=== PATIENT | female | born 1945 | race Caucasian/White ===

== ENCOUNTER → 2017-07-22 | Outpatient (CLI) | payer OTHER ==
[~2017-07-22] MED LIST: IOPAMIDOL (ISOVUE-300) 100 ML BTL ONE
== END ==
LOC: CIMAGING 11:01
PROVIDERS: ATTEND Surgery
DX: R10.32 Left lower quadrant pain (principal); K59.00 Constipation, unspecified; M51.36 Other intervertebral disc degeneration, lumbar region
CPT/HCPCS: 74177; Q9967; 82565-PO

== ENCOUNTER 2017-08-13 06:24 | Inpatient (IN) | payer OTHER ==
[2017-08-13] MEDS ORDERED: CLINDAMYCIN 900 MG/DEXTROSE 50 ML IV ONE (06:39)
[2017-08-13] MEDS ORDERED: LR 1,000 ML IV ONE (06:40)
[2017-08-13] MEDS ORDERED: LIDOCAINE 1% 300 MG/30 ML SDV ONE (07:56)
[2017-08-13] MEDS ORDERED: NA BICARBONATE 50 MEQ/50 ML VIAL ONE (07:56)
[2017-08-13] MEDS ORDERED: BUPIVACAINE 0.5% 30 ML SDV ONE (07:56)
--- NOTE | 2017-08-13 08:03 | PDANEPAE ---
ANE History of Present Illness 72 year old with IH ANE Past Medical History - Cardiovascular History Hx Hypertension: Yes Hx Arrhythmias: No Hx Chest Pain: No Hx Coronary Artery / Peripheral Vascular Disease: No Hx CHF / Valvular Disease: No Hx Palpitations: No - Pulmonary History Hx COPD: No Hx Asthma/Reactive Airway Disease: No Hx Recent Upper Respiratory Infection: No Hx Oxygen in Use at Home: No Hx Sleep Apnea: No Sleep Apnea Screening Result - Last Documented: Negative - Neurologic History Hx Cerebrovascular Accident: No Hx Seizures: No Hx Dementia: No - Endocrine History Hx Diabetes: No Endocrine History Comment: THYROID NODULE - Renal History Hx Renal Disorders: No - Liver History Hx Hepatic Disorders: No - Neurological & Psychiatric Hx Hx Neurological and Psychiatric Disorders: No - Cancer History Hx Cancer: No - Congenital Disorder History Hx Congenital Disorders: Yes Congenital History Comment: SKIN - GI History Hx Gastrointestinal Disorders: Yes Gastrointestinal History Comment: 4 MONTH HX OF GI DISCOMFORT,UNDER BETTER CONTROL WITH DIET MODIFICATIONS - Other Health History Other Health History: ALLERGIC RHINITIS - Chronic Pain History Chronic Pain: Yes (LOWER ABD) - Surgical History Prior Surgeries: HYSTERECTOMY. BLADDER REPAIR POST HYST. TONSILLECTOMY. TUBAL LIGATION. DERMOID CYST ANE Review of Systems Review of systems is: negative Review of Systems: - Exercise capacity METS (RN): 4 METS ANE Patient History - Allergies Allergies/Adverse Reactions: amoxicillin Allergy (Verified 08/10/17 10:27) Rash Sulfa (Sulfonamide Antibiotics) Allergy (Verified 08/10/17 10:27) Hives sulfamethoxazole [From Bactrim] Allergy (Verified 08/10/17 10:27) Hives Tetracyclines Allergy (Verified 08/13/17 07:04) trimethoprim [From Bactrim] Allergy (Verified 08/10/17 10:26) - Home Medications Home Medications: Amlodipine Besylate DAILY06 08/10/17 [Last Taken Unknown] Aspirin EC 81 mg (*) HS 08/10/17 [Last Taken Unknown] Herbals/Supplements -Info Only DAILY 08/10/17 [Last Taken Unknown] Lisinopril DAILY06 08/10/17 [Last Taken Unknown] - NPO status NPO Status: no food or drink >8 hours NPO Since - Liquids (Date): 08/12/17 NPO Since - Liquids (Time): 00:00 NPO Since - Solids (Date): 08/12/17 NPO Since - Solids (Time): 00:00 - Smoking Hx Smoking Status: Never smoked ANE Labs/Vital Signs - Vital Signs Blood Pressure: 126/69 Heart Rate: 92 Respiratory Rate: 14 O2 Sat (%): 98 Height: 152.4 cm Weight: 61.235 kg ANE Physical Exam - Airway Neck exam: FROM Mallampati Score: Class 1 Mouth exam: normal dental/mouth exam - Pulmonary Pulmonary: no respiratory distress - Cardiovascular Cardiovascular: regular rate and rhythym - ASA Status ASA Status: II ANE Anesthesia Plan Anesthesia Plan: GA w LMA
--- NOTE | 2017-08-13 08:13 | PDHPUP ---
History & Physical Update H&P update statement: This history and physical update is based on an assessment of the patient which was completed after admission or registration (within 24 hours), but prior to the surgery/procedure. H&P update: H&P reviewed & patient examined, no change in patient's condition since H&P completed
[2017-08-13] MEDS ORDERED: fentaNYL 250 MCG/5 ML INJ ONE (08:29)
[2017-08-13] MEDS ORDERED: PROPOFOL 200 MG/20 ML VIAL ONE (08:29)
--- NOTE | 2017-08-13 09:39 | POSTOPPROG ---
Post Op Note Date of Operation: 08/13/17 Surgeon: Bharat Moy Assessor: Monae Anesthesiologist: Loy Anesthesia: GET(General Endotracheal) Pre-op Diagnosis: LLQ pain Post-op Diagnosis: same Indication: same Procedure: open ventral hernia repair Findings: abdominal wall weakness, no true hernia Inf/Abcess present in the surg proc area at time of surgery?: No Depth: Deep Incisional (Fascial) EBL: Minimal
[2017-08-13] MEDS ORDERED: PROMETHAZINE HCL 25 MG/ML INJ IVP PRN (09:50)
[2017-08-13] MEDS ORDERED: ONDANSETRON 4 MG/2 ML VIAL IVP PRN (09:50)
[2017-08-13] MEDS ORDERED: NALOXONE HCL 0.4 MG/ML INJ IVP PRN (09:50)
--- NOTE | 2017-08-13 09:51 | POSTANESTH ---
Post Anesthetic Evaluation Cardiovascular Status: Normal, Stable Respiratory Status: Normal, Stable Level of Consciousness/Mental Status: Can Participate in Eval Pain Control: Adequate, Prn Tx Ordered Nausea/Vomiting Control: Adequate, Prn Tx Ordered Complications Possibly Related to Anesthesia: None Noted
[2017-08-13] MEDS ORDERED: fentaNYL 100 MCG/2 ML INJ ONE ×3 (10:01→10:53)
[2017-08-13] MEDS: fentaNYL 100 MCG/2 ML INJ IVP PRN ×6 (10:04→10:56)
[2017-08-13] MEDS: HYDROmorphONE/DILAUDID 2 MG/ML INJ IVP PRN ×5 (10:20→11:12)
[2017-08-13] MEDS ORDERED: HYDROmorphONE/DILAUDID 2 MG/ML INJ ONE (10:21)
[2017-08-13] MEDS ORDERED: HYDROCODONE/APAP 5/325 TAB PO PRN (10:32)
[2017-08-13] MEDS ORDERED: oxyCODONE IR 5 MG TAB PO PRN (10:32)
[2017-08-13] MEDS ORDERED: oxyCODONE IR 5 MG TAB ONE (11:11)
[2017-08-13] MEDS ORDERED: OXYCODONE/APAP 5/325 TAB PO PRN (14:06)
[2017-08-13] MEDS ORDERED: HYDROmorphONE/DILAUDID 2 MG/ML INJ IVP PRN (14:11)
--- NOTE | 2017-08-13 14:14 | CPEKG ---
Heart Rate: 90 RR Interval: 667 P-R Interval: 160 QRSD Interval: 90 QT Interval: 380 QTC Interval: 465 P Nathrop: 46 QRS Nathrop: 41 T Wave Nathrop: -17 EKG Severity - BORDERLINE ECG - EKG Impression: SINUS RHYTHM EKG Impression: BORDERLINE T ABNORMALITIES, DIFFUSE LEADS Electronically Signed By: Laurent Aparicio 16-Aug-2017 08:54:57
--- NOTE | 2017-08-13 14:33 | SOAPPROG ---
SOAP Progress Note Assessment/Plan: Assessment: 72 y/o F s/p open ventral hernia repair today Received call from RN in phase 2 recovery that pt was experiencing severe dizziness. Pt seen with Dr. Sales, anesthesiologist, who ordered a 500cc bolus of NS. S: Very dizzy. Moving eyes makes it worse. Denies nausea, vomiting, headaches , chest pain and heart palpitations. Reports incisional pain and has received iv dilaudid, as well as oral percocet. Took percocet with 6 crackers. Still having moderate pain, but does not want to take any more pain medication for fear that it will make dizziness worse. Has never had this issue before. Denies a history of vertigo. O: Alert, but unable to make eye contact Afebrile VSS HENT: pupils equal and round. normocephalic Cardiac: RRR Chest: no increased WOB, CTA bilaterally Abdomen: dressing with scant serosanguinous drainage, otherwise cdi. Appropriately tender to palpation. No guarding or rebound tenderness. Skin: warm and dry. Pale, which is her baseline. Plan: Discussed with Drs. Sales and Chinmay. Most likely due to medications from surgery. Will order stat ekg to r/o cardiac cause. Will order labs as well. Admit pt for observation, per pt's request. 08/13/17 14:20 Objective: Vital Signs Temp Pulse Resp BP Pulse Ox 36.5 C 91 21 H 126/61 H 99 08/13/17 11:34 08/13/17 11:34 08/13/17 11:35 08/13/17 13:31 08/13/17 13:31 08/12/17 08/13/17 08/14/17 05:59 05:59 05:59 Intake Total 300 Balance 300 ICD10 Worksheet Patient Problems: Problems Problem Status Onset Dizziness Acute - ICD10 Problem Qualifiers (1) Dizziness
[2017-08-13 16:05] LABS: PLATELET COUNT 216 10^3/uL (150-400)
[2017-08-13] MEDS ORDERED: ACETAMINOPHEN 650 MG/20.3 ML UDCUP PO PRN (17:04)
[2017-08-13] MEDS: KETOROLAC 15 MG/1 ML SDV IVP SCH ×2 (17:43→23:52)
--- NOTE | 2017-08-13 19:17 | GCON ---
[f rep st] CONSULTATION CONSULTING QUESTION: Evaluation for dizziness. HISTORY OF PRESENT ILLNESS: A 72-year-old female with a history of hypertension who presented today for elective ventral hernia repair. The patient reports taking her normal blood pressure medicines t his morning with a sip of water. Then, presenting to the operating room for surgical intervention. The patient denies any chest pain, shortness of breath, palpitations, vision changes, headache, numbn ess, tingling, weakness, or issues prior to presentation for surgery. The patient underwent general anesthesia and postoperatively, was experiencing a sensation she described as dizziness. She reports the sensation is a feeling like riding a wave up and down on a skateboard. Denies any changes in he r vision, denies the room spinning. Denies any associated nausea or vomiting. Denies palpitations, chest pain, numbness, tingling. Denies any previous episodes of this sensation of dizziness. Report s that it has been improving hourly since her postoperative evaluation. The patient tolerated normal oral intake for dinner. She reports this is some of the first solid non-BRAT food she has taken in over 2 months. Denies any changes in her bowel habits postoperatively. Has not stooled. Again, has no deficits in her vision, numbness, tingling, chest pain or shortness of breath. PAST MEDICAL HISTORY: 1. Hypertension. 2. Ventral hernia. 3. Status post a bladder repair after hysterectomy. SOCIAL HISTORY: Negative for tobacco. Very rare alcohol. No illicit drugs or marijuana. FAMILY HISTORY: Positive for strokes in several male relatives including a brother and an uncle. REVIEW OF SYSTEMS: A 10-point review of systems is negative with the exception of that reported in t he HPI. PHYSICAL EXAMINATION: VITAL SIGNS: Blood pressure 129/78, heart rate 78, respiratory rate 20, satur ating 98% on 2 L, 36.6. GENERAL: This is a healthy-appearing 72-year-old female, sitting up in bed. HEENT: Exam is notable for dry mucous membranes. Eye exam is negative for any icterus. CARDIAC: Patient is regular rate and rhythm. PULMONARY: She is clear to auscultation bilaterally. GASTROINT ESTINAL: Positive bowel sounds. Abdomen is soft and nontender to palpation in the upper quadrants, she is tender in the left lower. MUSCULOSKELETAL: Negative for any lower extremity edema. SKIN: N egative for any rashes. NEUROLOGIC: Cranial nerves 2-12 are grossly intact. Strength is intact katya aterally of the upper and lower extremities. Sensation is intact throughout. PSYCHIATRIC: She is p leasant and cooperative on interview and examination. DATA: EKG, which I personally reviewed and interpreted, shows sinus rhythm, normal axis, normal inte rvals, with nonspecific T-wave flattening across the precordium. LABORATORY: White count 5.7, hematocrit 37.5, platelets of 216. Creatinine 0.6, sodium 139, potassi um 4.2, glucose of 120. ASSESSMENT AND PLAN: This is a 72-year-old female presenting postoperatively with a sensation of lig htheadedness/dizziness. 1. Dizziness. Reviewing the patient's vital signs, it does appear that she had fluctuating episodes of hypotension postoperatively including nadirs in the systolics in the 90s. With my evaluation now , the patient has consistently had a blood pressure above 115 since noon, and does report that she mittal s not had significant episodes in several hours. I am suspicious that her symptoms may be related to intermittent hypotension. The patient is receiving intravenous fluids which will continue this even ing. We will hold her normal home dosing of antihypertensives overnight, tolerating her blood pressu re to rise to more normal levels. Those can be re-initiated in the morning if she has had complete c essation of her symptoms. I have low suspicion for an underlying cardiac or neurologic causation. 2. Ventral hernia. The patient is tolerating p.o. intake. Good bowel sounds postoperatively. We w ill defer postop management to the primary surgical service. 3. Prophylaxis: With sequential compression devices. 4. Diet: Regular. DISPOSITION: I expect in less than 2 midnights, if the patient's dizziness is [facility], she should be a candidate for disposition on her home medications. Discussed the case with the RN bedside. We will add Colace to her evening medications to avoid any postoperative constipation. /[id number]/MODL
[2017-08-13] MEDS: DOCUSATE SODIUM 100 MG CAP PO SCH (21:29)
[2017-08-14] MEDS: KETOROLAC 15 MG/1 ML SDV IVP SCH ×4 (05:05→23:48)
--- NOTE | 2017-08-14 08:32 | HOSPPROG ---
Hospitalist Progress Note Assessment/Plan: # dizziness - suspect d/t anesthesia, narcotics, relative hypotension # relative hypotension - likely poor PO intake over the past few months Recs: 1. monitor on tele for now; if benign for a few hours can be discharged from medicine perspective - i will review prior to discharge 2. hold anti-hypertensives (lisinopril and amlodipine); follow up with her PCP , Dr Monroy next week to re-evaluate her need for medications Subjective: still has minor dizziness but much better than before Objective: Vital Signs Temp Pulse Resp BP Pulse Ox 36.8 C 57 L 16 117/67 95 08/14/17 07:30 08/14/17 07:30 08/14/17 07:30 08/14/17 07:30 08/14/17 07:30 Laboratory Results 08/13/17 15:50 08/13/17 15:50 08/13/17 08/14/17 08/15/17 05:59 05:59 05:59 Intake Total 300 Output Total 525 Balance -225 chart reviewed MRI reviewed ECG personally reviewed - Physical Exam Constitutional: no apparent distress, appears nourished Cardiovascular: regular rate and rhythym, no murmur, rub, or gallop Respiratory: no respiratory distress, no rales or rhonchi, clear to auscultation Gastrointestinal: normoactive bowel sounds, other (soft, TTP diffusely, gauze CDI) ICD10 Worksheet Patient Problems: Problems Problem Status Onset Dizziness Acute
[2017-08-14] MEDS: DOCUSATE SODIUM 100 MG CAP PO SCH ×2 (09:23→21:26)
[2017-08-14] MEDS ORDERED: ACETAMINOPHEN 325 MG TAB PO PRN (09:30)
--- NOTE | 2017-08-14 10:57 | SOAPPROG ---
SOAP Progress Note Assessment/Plan: Assessment: s/p open ventral hernia repair Dizzy post op and still weak. No cardiac findings Will keep another day to see if dizziness and weakness improved Appreciate Dr. Roche S: Very weak getting to bedside commode. Only 2 waves of dizziness this am Dressing cdi (old stain medially) Abdomen soft BS present CTAB RRR Lying in bed Plan: 08/14/17 10:56 Objective: Vital Signs Temp Pulse Resp BP Pulse Ox 36.8 C 57 L 16 117/67 95 08/14/17 07:30 08/14/17 07:30 08/14/17 07:30 08/14/17 07:30 08/14/17 07:30 Laboratory Results 08/13/17 15:50 08/13/17 15:50 08/13/17 08/14/17 08/15/17 05:59 05:59 05:59 Intake Total 300 Output Total 525 Balance -225 ICD10 Worksheet Patient Problems: Problems Problem Status Onset Dizziness Acute
--- NOTE | 2017-08-14 12:02 | PDMN ---
Medical Necessity Medical necessity: C/M review: est. > 2 MN LOS for eval and TX of acute and persistent postop dizziness and weakness S/P 08/13/2017 surgery - open ventral hernia repair, patient very weak getting to bediside commode with assistance, requiring Hospitalist consult, ongoing cardiac monitoring, acute inpt PT/OT per 08/14/2017 progress note.
[2017-08-14] MEDS: NS 1,000 ML IV SCH ×2 (13:12→21:31)
--- NOTE | 2017-08-14 16:25 | ASMTCMCOM ---
CM Note CM Note Notes: Reviewed chart/progress notes. Patient 1 day post op hernia repair now experiencing some dizziness. Anticipate patient will likely be able to discharge home without any CM needs. No therapies ordered at this time. CM available should any needs arise. D/C Plan: Likely independent. Date Signed: 08/14/2017 08:19 AM Electronically Signed By:Ana Maria Pires RN
--- NOTE | 2017-08-14 16:26 | ASMTCMCOM ---
CM Note CM Note Notes: Spoke w/RN, pt was in for scheduled hernia repair but was kept in hospital d/t dizziness likely from anesthesia. Pt feeling better but not ready for dc. Pt is otherwise independent, she works and has a daughter for support. CM available for any changes. DC Plan: Independent Date Signed: 08/14/2017 11:01 AM Electronically Signed By:Josefina Solomon RN
[2017-08-15] MEDS: KETOROLAC 15 MG/1 ML SDV IVP SCH ×2 (05:14→11:46)
[2017-08-15] MEDS: DOCUSATE SODIUM 100 MG CAP PO SCH (07:37)
--- NOTE | 2017-08-15 09:07 | HOSPPROG ---
Hospitalist Progress Note Assessment/Plan: # dizziness - suspect d/t anesthesia, narcotics, relative hypotension; tele reviewed, benign # relative hypotension - likely poor PO intake over the past few months Recs: 1. take amlodipine 2.5mg daily starting tomorrow, hold lisinopril until f/u with PCP Dr Monroy 2. ok to discharge from IM perspective when cleared by general surgery Subjective: feels much stronger today; dizziness better; eating well; no BM Objective: Vital Signs Temp Pulse Resp BP Pulse Ox 36.7 C 65 18 133/62 H 96 08/15/17 07:31 08/15/17 07:31 08/15/17 07:31 08/15/17 07:31 08/15/17 07:31 Laboratory Results 08/13/17 15:50 08/13/17 15:50 08/14/17 08/15/17 08/16/17 05:59 05:59 05:59 Intake Total 300 750 Output Total 525 600 Balance -225 150 - Physical Exam Constitutional: no apparent distress, appears nourished Cardiovascular: regular rate and rhythym, no murmur, rub, or gallop Respiratory: no respiratory distress, no rales or rhonchi, clear to auscultation Gastrointestinal: no palpable masses, other (soft, TTP L sided), No guarding, No rebound, No distension ICD10 Worksheet Patient Problems: Problems Problem Status Onset Dizziness Acute
[2017-08-15 11:33] VITALS: BP 120/62
--- NOTE | 2017-08-15 11:54 | SOAPPROG ---
SOAP Progress Note Assessment/Plan: Assessment: s/p open ventral hernia repair Much improved today DC home F/U PCP 1 week F/U Dr. Moy 10-14 days S: Much improved. Ambulating independently Incision cdi Abdomen soft BS present CTAB RRR Lying in bed Plan: 08/14/17 10:56 08/15/17 11:52 Objective: Vital Signs Temp Pulse Resp BP Pulse Ox 36.9 C 56 L 14 120/62 94 08/15/17 11:32 08/15/17 11:32 08/15/17 11:32 08/15/17 11:32 08/15/17 11:32 Laboratory Results 08/13/17 15:50 08/13/17 15:50 08/14/17 08/15/17 08/16/17 05:59 05:59 05:59 Intake Total 300 750 Output Total 525 600 Balance -225 150 ICD10 Worksheet Patient Problems: Problems Problem Status Onset Dizziness Acute
--- NOTE | 2017-08-15 12:37 | ASMTLACE ---
LACE Length of stay for Answers: 2 days current admission Acuity / Level of Answers: Yes Care: Did the patient have an inpatient admission? Comorbidities - select Answers: Other Notes: HTN all that apply # of Emergency department Answers: 0 visits in the last 6 months Score: 6 Date Signed: 08/15/2017 12:36 PM Electronically Signed By:GAUDENCIO Mitchell
--- NOTE | 2017-08-18 13:41 | ASDISCHSUM ---
Discharge Information Plan Status:Home with No Needs Medically Cleared to Leave:08/15/2017 Discharge Date:08/15/2017 CM D/C Disposition:Home, Routine, Self-Care ADT D/C Disposition:Home, Routine, Self-Care Projected Discharge Date:08/15/2017 Transportation at D/C:Family Discharge Delay Reason: Follow-Up Date:08/15/2017 Discharge Slot: Final Diagnosis: Placement Information Patient Contact Information Contact Name:WENDY Relationship:Daughter Address:[address] Work Phone: City:[place] Phone: State/Zip Code:[place] Email: Financial Information Financial Class:Medicare Primary Plan Desc:MEDICARE OUTPATIENT Primary Plan Number:[id number] Secondary Plan Desc:KARYA Secondary Plan Number:[id number] Assessment Information [facility] CM Progress Note CM Note CM Note Notes: Reviewed chart/progress notes. Patient 1 day post op hernia repair now experiencing some dizziness. Anticipate patient will likely be able to discharge home without any CM needs. No therapies ordered at this time. CM available should any needs arise. D/C Plan: Likely independent. Date Signed: 08/14/2017 08:19 AM Electronically Signed By:Ana Maria Pires RN [facility] CM Progress Note CM Note CM Note Notes: Spoke w/RN, pt was in for scheduled hernia repair but was kept in hospital d/t dizziness likely from anesthesia. Pt feeling better but not ready for dc. Pt is otherwise independent, she works and has a daughter for support. CM available for any changes. DC Plan: Independent Date Signed: 08/14/2017 11:01 AM Electronically Signed By:Josefina Bredehoeft, RN Intervention Information
--- NOTE | 2017-08-22 04:41 | GOP ---
[f rep st] OPERATIVE REPORT DATE OF OPERATION: 08/13/2017 SURGEON: Bharat Moy MD SUPERVISOR LAST MODEL DEPARTMENT: Jaci Licona NP ANESTHESIOLOGIST: Dr. Kwaku Sales PREOPERATIVE DIAGNOSIS: Ventral hernia and left lower quadrant pain. POSTOPERATIVE DIAGNOSIS: Ventral hernia and left lower quadrant pain. PROCEDURE PERFORMED: Open left inguinal hernia. FINDINGS: The patient was found to have a mild direct defect in the left groin area. No true indire ct sac. ESTIMATED BLOOD LOSS: Negligible. DESCRIPTION OF PROCEDURE: The patient was taken to the operating room where she received satisfactor y general endotracheal anesthesia by Dr. Sales. She was placed in supine position, prepped and draped in usual sterile fashion. An oblique incision was made in the left lower quadrant in the inguinal a malka and dissection carried down through subcutaneous tissue. Hemostasis was obtained with electrocau yvonne and 3-0 Vicryl sutures. The external oblique was opened to the external ring. The round ligame nt was mobilized from the floor of the canal, was divided proximally and distally, and ligated with 3 -0 Vicryl ties. This exposed the inguinal floor, which was bulging up moderately. There was no true simple defect, but more generalized bulge. The transversalis fascia was then imbricated with a runn ing 0 Vicryl suture, including the internal ring. This lipoma in the internal ring had been ligated with 3-0 Vicryl as well. A Covidien polyester mesh patch was placed over the inguinal floor. It was secured in place with running 3-0 Prolene sutures securing it to the lacunar ligament, to the shelvi ng edge of the inguinal ligament, and to the internal oblique fascia. It was reinforced periodically with interrupted 0 Surgilon sutures. The external oblique was then closed with running 2-0 Vicryl s uture, subcu with 3-0 Vicryl, and skin with a 4-0 Monocryl subcuticular stitch. She tolerated the pr ocedure well, was taken to recovery room in good condition. There were no complications. /[id number]/MODL
--- NOTE | 2017-09-08 16:31 | GDS ---
[f rep st] DISCHARGE SUMMARY DIAGNOSES: Dizziness and left lower quadrant ventral hernia. CONSULTATIONS: Hospitalist, by Dr. Stone. SPECIAL TESTS: Electrocardiogram. PROCEDURES: Open left inguinal hernia repair. INTRAOPERATIVE FINDINGS: The patient was found to have a mild direct defect in the left groin area. No true indirect sac. HOSPITAL COURSE: The patient is a 72-year-old female who came in for an elective ventral hernia repair. The procedure went very well. However, upon waking up, the patient complained of severe dizziness. Per patient's request, she was admitted to the hospital for observation. She was seen evaluated in the recovery area by Dr. Sales, Anesthesia, as well as myself. A 500 cc bolus of normal saline was administered, which did not help her dizziness. A stat EKG was ordered that showed sinus rhythm with borderline T abnormalities. It was suspected that her dizziness was due to anesthesia, narcotics, and relative hypotension. Her EKG changes were benign. The relative hypotension was likely due to poor p.o. intake over the last month due to patient having frequent diarrhea. Due to her hypotension, her lisinopril was held, and her amlodipine dosage was decreased to 2.5 mg daily. On postop day 2, the patient was feeling much better. Her dizziness had improved, and she was discharged. She was discharged in good condition home and advised to follow up in Dr. Moy' office in 2 weeks. She was given a script for Percocet for pain control but advised to only take it if it was absolutely necessary. She was advised that plain Tylenol or ibuprofen will be better for pain control. /[id number]/MODL MTDD
== END 2017-08-15 13:03 | disposition home or self-care (01) | DRG 352 ==
LOC: FSGY 06:24 → OBSVTOIN 14:04 → F3E 16:14
PROVIDERS: ADMIT Surgery; ATTEND Surgery
PROC: 0YQ60ZZ Repair Left Inguinal Region, Open Approach (ICD-10-PCS; principal; 2017-08-13 08:15)
DX: K40.90 Unilateral inguinal hernia, without obstruction or gangrene, not specified as recurrent (principal); R42 Dizziness and giddiness; T41.0X5A Adverse effect of inhaled anesthetics, initial encounter; T40.605A Adverse effect of unspecified narcotics, initial encounter; I10 Essential (primary) hypertension; E04.1 Nontoxic single thyroid nodule; E55.9 Vitamin D deficiency, unspecified
CPT/HCPCS: C1781; J1170; J1885; J2704; J3010